=== PATIENT | female | born 1945 | race African-American/Black ===

== ENCOUNTER → 2016-11-26 | Day surgery (SDC) | payer MEDICARE, OTHER, MEDICAID ==
[~2016-11-26] VITALS: Ht 161.3 cm; Wt 72.6 kg
[2016-11-26] VITALS (8 sets, daily range): BP systolic 137–173; BP diastolic 76–99
[~2016-11-26] MED LIST: ARIMIDEX1 MG ORAL; Akten 3.5% 1ml Btl ONE; Alfentanil 2ml Inj ONE; BENAZEPRIL HCL40 MG ORAL; BSS 15ml BTL ONE; BSS 500ml btl ONE; CALCIUM500 M3 ORAL; COMPAZINE25 MG RECTAL; Carbachol 0.01% Op Soln 1.5ml vial ONE; Ciprofloxacin Opth Soln ONE; Cyclopentolate 1% Opth Sol ONE; Dexamethasone 4mg/ml vial ONE; EPINEPHrine 1mg/1ml Amp ONE; FOLIC ACID1 MG ORAL; Fluorescein Strips ONE; Flurbiprofen 0.03% Opth Sol 2.5ml ONE; Gatifloxacin Opth Solution 0.5% ONE; HYDROCODON-ACE1 EA15 ORAL; LOSARTAN POTASS50 MG ORAL; LR 1000ml 1,000 ML IV SCH; LR 1000ml 1,000 ML IVLG SCH; Lidocaine 1% MPF 10mg/ml 5ml ONE; Lidocaine 4% Amp ONE; Maxitrol Opth Oint 3.5gm ONE; Midazolam 2mg/2ml Inj ONE; NEXIUM40 MG ORAL; Phenylephrine 10% Opth Soln 5ml ONE; Povidone-Iodine 5% opth solution ONE; Pred Forte 1% Opth Susp 1ml ONE; Pred Forte 1% Opth Susp 1ml RIGHT EYE ONE; QVAR7.3 GM INH; SINGULAIR10 MG ORAL; Sodium Hyaluronate 10 mg/ml 0.85ml ONE; Tetracaine 0.5% Opth Soln ONE; Timolol 0.5% Op Soln 2.5ml ONE; VERAPAMIL ER240 MG ORAL; VITAMIN D22000 UNIT PO; fentaNYL 100 mcg/2 mL IV PRN
--- NOTE | 2016-11-26 09:15 | Pre-Procedure Note/Attestation ---
Pre-Procedure Note/Attestation Complete Prior to Procedure Planned Procedure: right - Removal of cataract and placement of intraocular lens, right eye Procedure Narrative: Removal of cataract and placement of intraocular lens, right eye Indications for Procedure Pre-Operative Diagnosis: cataract, nuclear, right eye Attestation I attest that I discussed the nature of the procedure; its benefits; risks and complications; and alternatives (and the risks and benefits of such alternatives ), prior to the procedure, with the patient (or the patient's legal bilingual sales representative). I attest that, if there was a reasonable possibility of needing a blood transfusion, the patient (or the patient's legal bilingual sales representative) was given the [place] [employer] [facility] standardized written summary, pursuant to the Germain Byron Blood Safety Act ([place] Health and Safety Code # 1645, as amended). I attest that I re-evaluated the patient just prior to the surgery and that there has been no change in the patient's H&P, except as documented below: Derrick Walker MD Nov 26, 2016 09:15
[2016-11-26] MEDS: Cyclopentolate 1% Opth Sol RIGHT EYE SCH ×3 (10:01→10:21)
[2016-11-26] MEDS: Phenylephrine 10% Opth Soln 5ml RIGHT EYE SCH ×3 (10:01→10:21)
[2016-11-26] MEDS: Akten 3.5% 1ml Btl RIGHT EYE SCH ×3 (10:01→10:21)
[2016-11-26] MEDS: Flurbiprofen 0.03% Opth Sol 2.5ml RIGHT EYE SCH ×3 (10:02→10:23)
[2016-11-26] MEDS: Gatifloxacin Opth Solution 0.5% RIGHT EYE SCH ×3 (10:03→10:21)
[2016-11-26] MEDS: Tetracaine 0.5% Opth Soln RIGHT EYE SCH ×3 (10:13→10:21)
--- NOTE | 2016-11-26 10:26 | Anethesia Preoperative Eval ---
Anesthesia Pre-op PMH/ROS General Date of Evaluation: Nov 26, 2016 Time of Evaluation: 10:45 Anesthesiologist: Yosef ASA Score: ASA 3 Mallampati Score Class I : Soft palate, uvula, fauces, pillars visible Class II: Soft palate, uvula, fauces visible Class III: Soft palate, base of uvula visible Class IV: Only hard plate visible Mallampati Classification: Class II Surgeon: Denise Diagnosis: Cataract right eye Surgical Procedure: Extraction of cataract with IOL Family History: no anesthesia problems Allergies: Coded Allergies: No Known Allergies (Verified Allergy, Unknown, 03/11/10) Medications: see eMAR Past Medical History Cardiovascular: Reports: HTN, Denies: CAD, HI, arrhythmia, other, valve dz Pulmonary: Denies: COPD, MARIA D, asthma, other Gastrointestinal/Genitourinary: Reports: GERD, Denies: CRI, ESRD, other Neurologic/Psychiatric: Denies: CVA, TIA, dementia, depression/anxiety, other Endocrine: Denies: DM, hypothyroidism, other, steroids HEENT: Reports: cataract (R) Musculoskeletal/Integumentary: Reports: OA PMH Narrative: HTN, OA, GERD, Breast CA, Colon CA PSxH Narrative: Right mastectomy, bilateral TKR, colon resection (CA), Vitrectomy Anesthesia Pre-op Phys. Exam Physician Exam Constitutional: NAD Neurologic: CN 2-12 intact Cardiovascular: RRR, no M/R/G Respiratory: CTA Gastrointestinal: S/NT/ND Airway Exam Mallampati Score: Class II MO: full ROM: full Teeth: intact Anesthesia Pre-op A/P Labs WNL Studies Pre-op Studies: EKG - NSR Risk Assessment & Plan Assessment: Cataract right eye Plan: MAC Status Change Before Surgery: No Pre-Antibiotics Drug: None RICK OVERTON M.D. Nov 26, 2016 10:26
--- NOTE | 2016-11-26 10:27 | Immediate Post-Op Evaluation ---
Immediate Post-Op Evalulation Immediate Post-Op Evalulation Procedure: Extraction of cataract with IOL right eye Date of Evaluation: Nov 26, 2016 Time of Evaluation: 12:10 IV Fluids: 675 Blood Pressure Systolic: 156 Blood Pressure Diastolic: 91 Pulse Rate: 77 Respiratory Rate: 17 O2 Sat by Pulse Oximetry: 100 Temperature (Fahrenheit): 99.0 Pain Score (1-10): 0 Nausea: No Vomiting: No Complications No complication Patient Status: awake, patent, none Hydration Status: adequate Drug: None RICK OVERTON M.D. Nov 26, 2016 10:27
--- NOTE | 2016-11-26 12:05 | Discharge Instructions ---
Discharge Instructions Discharge Instructions Resume Normal Activity?: No Follow Up Orders Continue eye drop medications Leave shield on except to place eye drops Followup tomorrow in Dr Walker's office For Congestive Heart Failure Reminder Report to your physician any weight gain of 5 pounds or more in one week. Derrick Walker MD Nov 26, 2016 12:05
--- NOTE | 2016-11-26 12:08 | Brief Operative Note ---
Immediate Post Operative Note Operative Note Pre-op Diagnosis: cataract, nuclear, right eye Procedure: phaco pc iol, OD Post-op Diagnosis: same as pre-op Surgeon: Majo Walker MD Dental Instructor: none Anesthesiologist: Dr Navas Anesthesia: local, MAC Specimen: none Complications: none Condition: stable Estimated Blood Loss: minimal Implant(s) used?: Yes - ankur [id number] 21.5 Derrick Walker MD Nov 26, 2016 12:08
--- NOTE | 2016-11-26 12:10 | 48 Hour Post Anesthesia Eval ---
Post Anesthesia Evaluation Procedure: Extraction of cataract with IOL right eye Date of Evaluation: Nov 26, 2016 Time of Evaluation: 12:40 Blood Pressure Systolic: 154 0: 91 Pulse Rate: 84 Respiratory Rate: 20 O2 Sat by Pulse Oximetry: 98 Airway: patent Nausea: No Vomiting: No Pain Intensity: 0 Hydration Status: adequate Cardiopulmonary Status: Stable Mental Status/LOC: patient returned to baseline Follow-up Care/Observations: As per surgery Post-Anesthesia Complications: No anesthetic complication Follow-up care needed: N/A RICK OVERTON M.D. Nov 26, 2016 12:10
--- NOTE | 2016-11-26 22:01 | Operative Note - Dictated ---
DATE OF OPERATION: 11/26/2016 SURGEON: Derrick Walker M.D. LOAD PLANNER SURGEON: None. ANESTHESIOLOGIST: Germain Navas M.D. ANESTHESIA: Local/standby/monitored anesthesia care. PREOPERATIVE DIAGNOSIS: Cataract, nuclear, right eye. POSTOPERATIVE DIAGNOSIS: Cataract, nuclear, right eye. SPECIMENS: None. COMPLICATIONS: None. INDICATIONS FOR SURGERY: The patient has had painless progressive decrease in visual acuity in the right eye secondary to cataract. The patient has also had macular hole surgery. The patient understands the risks of surgery including infection, bleeding, need for further surgery, loss of vision, no improvement in vision, loss of the eye, loss of life, glaucoma, and retinal detachment and understands these risks and elects to proceed with surgery. FINDINGS: The patient had a +3 very dense central nuclear sclerotic cataract. Operative Note: After informed consent was obtained, the patient was brought into the operating room and placed in supine position. Cardiac and respiratory monitors were attached. A time-out was performed and all criteria were met and everyone in the room agreed. The right eye was draped and prepped in a sterile manner for ocular surgery. A lid speculum was placed in the eye. A 1% lidocaine preservative-free was injected at the approximate 9 o'clock limbus. A conjunctiva peritomy from approximately 8:30 to 9:30 was made and dissected posteriorly. Hemostasis was maintained with bipolar cautery. A 2.6 mm limbal incision was made centered approximately 9 o'clock to 09:30 and dissected anteriorly. A paracentesis was made at approximately 12 o'clock, and 1% lidocaine preservative-free was injected into the anterior chamber followed by Healon. The anterior chamber was then entered using a 2.6 mm keratome through the limbal incision. An anterior capsulorrhexis was then performed. Hydrodissection and hydrodelineation of the lens was then performed. The lens was then phacoemulsified using a divide and conquer four-quadrant technique. Residual cortical material was then aspirated from the capsular bag. The lens was taken from its package and placed into the cartridge and the tip of the cartridge was placed through the limbal incision and the lens was injected into the capsular bag and centered nicely with a Sinskey hook. Healon was then aspirated from the anterior chamber and capsular bag. The lens was positioned such that it was along the 9 o'clock to 3 o'clock meridian and both the haptics and optics were noted to be in the capsular bag. Healon was then aspirated from the anterior chamber and capsular bag. One 10-0 nylon interrupted suture was then placed through the limbal incision and the knot was rotated and buried. Care was taken during the entire procedure not to touch the endothelium. The wounds were checked and hydrated closed. The conjunctiva was then closed with forceps cautery and again the lens was checked and found to have the haptic and both optics in the capsular bag. The lid speculum and drapes were removed from the eye, and drops of Pred Forte and gatifloxacin were applied to the eye followed by Maxitrol ointment and then a shield. The patient tolerated the procedure well and left the operating room in awake, alert, and stable condition. Note, despite excellent anesthesia, the patient was very sensitive to place in just simply BSS eyedrops on the surface of the eye. The procedure went fine without any complications, but she appeared to be somewhat more sensitive than usual to the drops in terms of noting just being surprised when the drops were placed onto the surface of the eye. Derrick Walker M.D. DR: PHILIP JOB#: [id number] CC:
== END | disposition home or self-care (01) ==
LOC: SUR 09:37
DX: H25.11 Age-related nuclear cataract, right eye (principal); I10 Essential (primary) hypertension; K21.9 Gastro-esophageal reflux disease without esophagitis; M19.90 Unspecified osteoarthritis, unspecified site; Z85.3 Personal history of malignant neoplasm of breast; Z85.038 Personal history of other malignant neoplasm of large intestine; Z90.11 Acquired absence of right breast and nipple; Z90.49 Acquired absence of other specified parts of digestive tract; Z96.653 Presence of artificial knee joint, bilateral
CPT/HCPCS: 66984; J0171; J1100; J2250; J3010; J3490; V2632; 94003; 94150

== ENCOUNTER 2017-09-09 15:28 | Emergency (ER) | payer MEDICARE, OTHER ==
[~2017-09-09] VITALS: Ht 157.5 cm; Wt 71.2 kg
[~2017-09-09 15:28] MED LIST changes: -Akten 3.5% 1ml Btl ONE; -Alfentanil 2ml Inj ONE; -BSS 15ml BTL ONE; -BSS 500ml btl ONE; -Carbachol 0.01% Op Soln 1.5ml vial ONE; -Ciprofloxacin Opth Soln ONE; -Cyclopentolate 1% Opth Sol ONE; -Dexamethasone 4mg/ml vial ONE; -EPINEPHrine 1mg/1ml Amp ONE; -Fluorescein Strips ONE; -Flurbiprofen 0.03% Opth Sol 2.5ml ONE; -Gatifloxacin Opth Solution 0.5% ONE; -LR 1000ml 1,000 ML IV SCH; -LR 1000ml 1,000 ML IVLG SCH; -Lidocaine 1% MPF 10mg/ml 5ml ONE; -Lidocaine 4% Amp ONE; -Maxitrol Opth Oint 3.5gm ONE; -Midazolam 2mg/2ml Inj ONE; -Phenylephrine 10% Opth Soln 5ml ONE; -Povidone-Iodine 5% opth solution ONE; -Pred Forte 1% Opth Susp 1ml ONE; -Pred Forte 1% Opth Susp 1ml RIGHT EYE ONE; -Sodium Hyaluronate 10 mg/ml 0.85ml ONE; -Tetracaine 0.5% Opth Soln ONE; -Timolol 0.5% Op Soln 2.5ml ONE; -fentaNYL 100 mcg/2 mL IV PRN
[2017-09-09] MEDS ORDERED: fentaNYL 100 mcg/2 mL IV ONE ×5 (15:30→19:30)
[2017-09-09] MEDS ORDERED: Ketorolac 30mg Inj IV ONE (15:30)
[2017-09-09 15:32] VITALS: BP 151/76
--- NOTE | 2017-09-09 15:34 | Emergency Room Report ---
History of Present Illness General Chief Complaint: Pain Source: Patient (Singh Salcido M.D.) Present Illness HPI The patient presents with 3 days of severe lumbar pain. She denies any trauma. She now is so weak and has much pain that she is unable to ambulate at her home. She's had chronic arthritis in the lower back but never with pain meds as severe. She's status post treatment for two cancers: breast and colon. She states that she's had difficulty passing urine. She's also been constipated but took milk of magnesia some help. She's been taking oxycodone, tramadol hands hydrocodone. These have not helped with the pain. The pain is 10/10 lumbar area radiating down to both legs. She's not taking blood thinners at this time. No URI sy, chest pain, cough, dyspnea, edema, rashes, abdominal pain. (Singh Salcido M.D.) Allergies: Coded Allergies: No Known Allergies (Verified , 03/11/10) Patient History Past Medical History: see triage record Past Surgical History: other - breast CA surgery Social History Narrative at home Reviewed Nursing Documentation: PMH: Agreed, PSxH: Agreed (Singh Salcido M.D.) Nursing Documentation-PMH Past Medical History: No History, Except For Hx Cardiac Problems: Yes Hx Hypertension: Yes Hx Cancer: Yes - colon, breast Hx Gastrointestinal Problems: Yes Hx Neurological Problems: No (Singh Salcido M.D.) Review of Systems All Other Systems: negative except mentioned in HPI (Singh Salcido M.D.) Physical Exam Vital Signs Date Time Temp Pulse Resp B/P (MAP) Pulse Ox O2 Delivery O2 Flow Rate FiO2 09/09/17 15:22 98.6 100 18 160/80 97 Sp02 EP Interpretation: reviewed, normal General Appearance: alert, GCS 15, non-toxic, mild distress Head: normocephalic Eyes: bilateral eye normal inspection, bilateral eye PERRL ENT: moist mucus membranes Neck: supple Respiratory: chest non-tender, lungs clear, normal breath sounds Cardiovascular #1: regular rate, rhythm Cardiovascular #2: 2+ radial (R), 2+ dorsalis pedis (R), 2+ dorsalis pedis (L) Gastrointestinal: normal inspection, normal bowel sounds, non tender, no mass, non-distended Genitourinary: other - fullness of bladder Musculoskeletal: digits/nails normal, no calf tenderness, tender - lumbar area , central, + increase with SLR bilat Neurologic: alert, oriented x3, drafting engineer III-XII nml as tested, motor strength/tone normal, DTRs symmetric, sensory intact, cerebellar normal, speech normal Psychiatric: other - in pain Reflexes: 2+ knee (R), 2+ knee (L), 1+ ankle (R), 1+ ankle (L) Skin: no rash (Singh Salcido M.D.) Medical Decision Making Diagnostic Impression: Primary Impression: Back pain Qualified Codes: M54.42 - Lumbago with sciatica, left side; M54.41 - Lumbago with sciatica, right side Additional Impressions: Urinary retention Leukocytosis Qualified Codes: D72.829 - Elevated white blood cell count, unspecified Epidural abscess ER Course The patient should presents with severe back pain. She is at increased risk for having 2 types of cancer. Differential includes pathologic fracture, vertebral body fracture, metastasis, cord compression, epidural abscess amongst others. We need to exclude urinary tract infection. Work up will be with CT of the spine, labs. The patient needed to have a Graves placed. The patient be treated with IV hydration and analgesia. EKG and chest x-ray unremarkable. Labs significant for leukocytosis and elevated sedimentation rate. Blood cultures are performed and antibiotics begun. Patient required several doses of analgesics to control the pain. Neurologic exam unchanged. CT scan of the back with contrast suggests a compression deformity of T12 with several paraspinal soft tissue infiltration possibly from infection with degenerative changes. Solu-medrol given. Based on the CT and elevated white count and the patient's presentation with urinary retention and increased back pain a CT was sent to [facility] at 21:20. Pain better controlled. Discussed with Dr. Luque, Neurosurgery [facility]. Says needs to be presented Spine Service. 23:53. Presented to Dr. Prado who wants an MRI to be done but accepts the patient 00: 57. MRI being called. Presented to Dr. Horn - Hospitalist service. Signed out to Dr. Muhammad. Laboratory Tests Test 09/09/17 16:50 09/09/17 17:15 09/09/17 18:00 Urine Color Yellow Urine Appearance Clear Urine pH 5 (4.5-8.0) Urine Specific Burke 1.010 (1.005-1.035) Urine Protein 2+ (NEGATIVE) H Urine Glucose (UA) Negative (NEGATIVE) Urine Ketones 1+ (NEGATIVE) H Urine Occult Blood 2+ (NEGATIVE) H Urine Nitrite Negative (NEGATIVE) Urine Bilirubin Negative (NEGATIVE) Urine Urobilinogen Normal MG/DL (0.0-1.0) Urine Leukocyte Esterase 1+ (NEGATIVE) H Urine RBC 5-10 /HPF (0 - 2) H Urine WBC 2-4 /HPF (0 - 2) Urine Squamous Epithelial Cells Few /LPF (NONE/OCC) Urine Bacteria Few /HPF (NONE) White Blood Count 43.9 K/UL (4.8-10.8) *H Red Blood Count 2.89 M/UL (4.20-5.40) L Hemoglobin 9.2 G/DL (12.0-16.0) L Hematocrit 28.1 % (37.0-47.0) L Mean Corpuscular Volume 97 FL (80-99) Mean Corpuscular Hemoglobin 31.8 PG (27.0-31.0) H Mean Corpuscular Hemoglobin Concent 32.7 G/DL (32.0-36.0) Red Cell Distribution Width 14.1 % (11.6-14.8) Platelet Count 332 K/UL (150-450) Mean Platelet Volume 7.5 FL (6.5-10.1) Neutrophils (%) (Auto) % (45.0-75.0) Lymphocytes (%) (Auto) % (20.0-45.0) Monocytes (%) (Auto) % (1.0-10.0) Eosinophils (%) (Auto) % (0.0-3.0) Basophils (%) (Auto) % (0.0-2.0) Differential Total Cells Counted 100 Neutrophils % (Manual) 66 % (45-75) Lymphocytes % (Manual) 19 % (20-45) L Monocytes % (Manual) 12 % (1-10) H Eosinophils % (Manual) 0 % (0-3) Basophils % (Manual) 0 % (0-2) Band Neutrophils 3 % (0-8) Platelet Estimate Adequate Platelet Morphology Normal Hypochromasia 1+ Anisocytosis 1+ Erythrocyte Sedimentation Rate 46 MM/HR (0-30) H Prothrombin Time 11.4 SEC (9.30-11.50) Prothrombin Time INR 1.1 (0.9-1.1) PTT 36 SEC (23-33) H Sodium Level 129 MMOL/L (136-145) L Potassium Level 3.0 MMOL/L (3.5-5.1) L Chloride Level 92 MMOL/L (98-107) L Carbon Dioxide Level 30 MMOL/L (21-32) Anion Gap 7 mmol/L (5-15) Blood Urea Nitrogen 10 mg/dL (7-18) Creatinine 0.9 MG/DL (0.55-1.30) Estimate Glomerular Filtration Rate mL/min (>60) Glucose Level 124 MG/DL (74-106) H Uric Acid 7.6 MG/DL (2.6-7.2) H Calcium Level 9.7 MG/DL (8.5-10.1) Total Bilirubin 0.6 MG/DL (0.2-1.0) Aspartate Amino Transferase (AST) 19 U/L (15-37) Alanine Aminotransferase (ALT) 10 U/L (12-78) L Alkaline Phosphatase 102 U/L (46-116) Total Creatine Kinase 31 U/L (26-308) Troponin I 0.000 ng/mL (0.000-0.056) Pro-B-Type Natriuretic Peptide 214 pg/mL (0-125) H Total Protein 7.9 G/DL (6.4-8.2) Albumin 3.2 G/DL (3.4-5.0) L Globulin 4.7 g/dL Albumin/Globulin Ratio 0.7 (1.0-2.7) L Lactic Acid Level 1.40 mmol/L (0.66-2.22) (Singh Salcido M.D.) ER Course Please see Dr. Wellington noted above for full history physical 71 yo F with possible epidural abscess / cauda equina syndrome already received abx, pain meds, steroids Dr Salcido had already spoken to hospitalist as well as neurosurgeron at [facility], they said they would accept patient for transfer after getting an MRI Around 1:30 AM I spoke to transfer center at [facility]. During that time I notified them that MRI is not able to be done at our hospital as we do not have an on-call technical testing engineer during the weekdays. This was confirmed with 2 radiology techs, as well as them contacting their credit and loan collections supervisor. I talked to the transfer nurse Vikki from [facility] and relayed this information , told her of the of the time sensitive diagnosis of an epidural abscess/cauda equina, given the patient already had urinary retention and has been having lower ext weakness for the last few days. She states that she will inform the attending neurosurgeon Called again at 2:40 AM, states that she has still not been able to get a hold of the neurosurgeon Spoke to Dr Whittington patient's oncologist, has privileges at [facility]. Helped to assist transfer [facility] officially accepted patient for [facility], ETA 6am for transport (Geetha Muhammad M.D.) EKG Diagnostic Results Rate: normal Rhythm: NSR ST Segments: no acute changes (Singh Salcido M.D.) Rhythm Strip Diag. Results EP Interpretation: yes Rhythm: NSR, no PVC's, no ectopy (Singh Salcido M.D.) Chest X-Ray Diagnostic Results Chest X-Ray Diagnostic Results : Chest X-Ray Ordered: Yes # of Views/Limited/Complete: 1 View Indication: Other EP Interpretation: Yes Interpretation: no consolidation, no effusion, no pneumothorax, other - surgical clips R axila Impression: No acute disease Electronically Signed by: Singh Salcido MD (Singh Salcido M.D.) CT/MRI/US Diagnostic Results CT/MRI/US Diagnostic Results : Imaging Test Ordered: LS spine + contrast Impression compression deform T12 ? chronicity paraspinal soft tissue infiltration: scarring, degenerative or possible infection DJD Cannot assess spinal canal (Singh Salcido M.D.) Last Vital Signs Date Time Temp Pulse Resp B/P (MAP) Pulse Ox O2 Delivery O2 Flow Rate FiO2 09/09/17 20:13 98.7 94 12 151/81 99 Room Air Status: improved (Singh Salcido M.D.) Disposition: XFER SHT-TRM HOSP Condition: Serious - stable for transfer Singh Salcido M.D. Sep 09, 2017 15:34 Geetha Muhammad M.D. Sep 10, 2017 02:45
--- NOTE | 2017-09-09 16:10 | Diagnostic Imaging Report ---
Indication: Chest pain Technique: One view of the chest Comparison: 03/21/2010 Findings: The lungs and pleural spaces are clear. The heart size is normal. The aorta is tortuous. Surgical clips are seen in the right axilla Impression: No acute process
[2017-09-09 17:00] VITALS: BP 134/81
[2017-09-09] MEDS ORDERED: fentaNYL 100 mcg/2 mL IM ONE (17:15)
[2017-09-09 17:20] LABS: APPEARANCE,URINE CLEAR; BILIRUBIN, URINE NEGATIVE (NEGATIVE); GLUCOSE, URINE (UA) NEGATIVE (NEGATIVE); KETONES,URINE 1+ (NEGATIVE); LEUKOCYTE ESTERASE ,URINE 1+ (NEGATIVE); NITRITE,URINE NEGATIVE (NEGATIVE); PH,URINE 5 (4.5-8.0); PROTEIN,URINE 2+ (NEGATIVE); UROBILINOGEN,URINE NORMAL MG/DL (0.0-1.0)
[2017-09-09 17:36] LABS: COLOR,URINE YELLOW
[2017-09-09 17:37] LABS: HEMATOCRIT 28.1 % (37.0-47.0); HEMOGLOBIN 9.2 G/DL (12.0-16.0); MEAN CORPUSCULAR VOLUME 97 FL (80-99); PLATELET COUNT 332 K/UL (150-450); RED BLOOD COUNT 2.89 M/UL (4.20-5.40); RED CELL DISTRIBUTION WIDTH 14.1 % (11.6-14.8)
[2017-09-09 17:38] LABS: INR 1.1 (0.9-1.1)
[2017-09-09 17:39] LABS: ANION GAP 7 mmol/L (5-15); BLOOD UREA NITROGEN 10 mg/dL (7-18); CALCIUM 9.7 MG/DL (8.5-10.1); CARBON DIOXIDE 30 MMOL/L (21-32); CHLORIDE 92 MMOL/L (98-107); CREATININE 0.9 MG/DL (0.55-1.30); SODIUM 129 MMOL/L (136-145)
[2017-09-09 17:43] LABS: WHITE BLOOD COUNT 43.9 K/UL (4.8-10.8)
[2017-09-09 17:52] LABS: ALANINE AMINOTRANSFERASE 10 U/L (12-78); ALBUMIN 3.2 G/DL (3.4-5.0); ALBUMIN/GLOBULIN RATIO 0.7 (1.0-2.7); ALKALINE PHOSPHATASE 102 U/L (46-116); ASPARTATE AMINO TRANSFERASE 19 U/L (15-37); BILIRUBIN,TOTAL 0.6 MG/DL (0.2-1.0); CREATINE KINASE 31 U/L (26-308)
[2017-09-09] MEDS ORDERED: Vancomycin 1 GM in D5W 275 ML IVPB ONE (18:30)
[2017-09-09] MEDS ORDERED: Cefepime HCl 1 GM in D5W 55 ML IVPB ONE (18:30)
[2017-09-09] MEDS ORDERED: Cefepime 1gm vial ONE (18:43)
[2017-09-09 19:05] VITALS: BP 152/69
[2017-09-09] MEDS ORDERED: Vancomycin 1gm inj IVPB ONE (19:49)
[2017-09-09 20:13] VITALS: BP 151/81
[2017-09-09] MEDS ORDERED: Hydromorphone 0.5mg/0.5ml inj ONE (21:25)
[2017-09-09] MEDS ORDERED: Solu-MEDROL 125mg Inj IVP ONE (21:30)
[2017-09-09] MEDS ORDERED: Hydromorphone 0.5mg/0.5ml inj IVP ONE (21:30)
[2017-09-09] MEDS ORDERED: HYDROmorphone 1mg/ml Carpuject IVP ONE (22:15)
[2017-09-10] VITALS: BP 148/124
[2017-09-10] MEDS ORDERED: Hydromorphone 0.5mg/0.5ml inj IVP ONE ×2 (01:15→04:15)
[2017-09-10] MEDS ORDERED: Hydromorphone 0.5mg/0.5ml inj ONE ×2 (01:28→04:27)
[2017-09-10 02:00] VITALS: BP 99/63
[2017-09-10 04:46] VITALS: BP 155/80
[2017-09-10 06:35] VITALS: BP 154/72
--- NOTE | 2017-09-10 08:09 | Diagnostic Imaging Report ---
Indication: Back pain Technique: CT lumbar spine was performed utilizing automated exposure control without intravenous contrast material. Axial, sagittal and coronal images were generated. CT dose: Total DLP 601.48 mGycm; CTDI vol 16.75 mGy Comparison: None Findings: There is transitional lumbosacral anatomy with 4 nonrib-bearing lumbar-type vertebral bodies with likely sacralization of L5. For purposes of counting on this exam only, the inferior most rib bearing vertebral body will be labeled as T12. There is moderate scoliosis of the lumbar spine. There is mild compression deformity of the T12 vertebral body of uncertain chronicity. There is multilevel degenerative change of the lumbar spine with disc space narrowing, multilevel disc osteophyte complexes and productive change including osteophyte formation and facet arthropathy. There is possible minimal/grade 1 anterolisthesis of L4 on the sacralized L5, likely degenerative in etiology. There is mild bony central canal narrowing at L3-L4. Spinal canal and its contents are not well evaluated on CT. There is subtle paraspinal soft tissue infiltration which could be from scarring, degenerative change or infection. Clinical correlation recommended. Abdominal aorta is normal in caliber. Colonic diverticulosis is noted. Graves catheter in place. Uterus is not visualized, likely surgically absent There is dependent atelectasis in the lung bases. IMPRESSION: Transitional lumbosacral anatomy as above. Age-indeterminate mild compression deformity of T12. Subtle paraspinal soft tissue infiltration, possibly related to scarring, degenerative change or infection. Clinical correlation recommended. Scoliosis and multilevel degenerative change of the lumbar spine. Inadequate assessment of the spinal canal and its contents on CT. MRI recommended for more sensitive evaluation as clinically indicated. Additional findings as above. This corresponds with the statrad preliminary report. The CT scanner at [facility] is accredited by the [employer] and the scans are performed using protocols designed to limit radiation exposure to as low as reasonably achievable to attain images of sufficient resolution adequate for diagnostic evaluation.
--- NOTE | 2017-09-13 17:01 | Cardiology Report ---
APPROVED REPORT EKG Measurement Heart [id number] Normal sinus rhythm Possible Left atrial enlargement Possible Inferior infarct, age undetermined Abnormal ECG
== END 2017-09-10 06:35 | disposition short-term general hospital (02) ==
LOC: EDBD 15:28 → EMR 15:59
DX: M54.5 Low back pain (principal); R33.9 Retention of urine, unspecified; D72.829 Elevated white blood cell count, unspecified; I10 Essential (primary) hypertension; Z85.3 Personal history of malignant neoplasm of breast; Z85.038 Personal history of other malignant neoplasm of large intestine; M41.86 Other forms of scoliosis, lumbar region
CPT/HCPCS: 36415; 71045; 72132; 80053; 81003; 82550; 83605; 83880; 84484; 84550; 85007; 85025; 85610; 85651; 85730; 87040; 93005; 96361; 96365; 96366; 96372; 96375; 96376; 99285; J0692; J1170; J2930; J3010; J3370; Q9967; 99284